=== PATIENT | male | born 1990 | race Caucasian/White ===

== ENCOUNTER 2021-10-18 13:44 | Emergency (ER) | payer MEDICAID ==
[2021-10-18] MEDS ORDERED: Ketorolac 60 MG/2 ML SDV IM ONE (14:10)
== END 2021-10-18 14:20 | disposition home or self-care (01) ==
LOC: CC.ED 13:44
DX: K08.89 Other specified disorders of teeth and supporting structures (principal); Z88.0 Allergy status to penicillin
CPT/HCPCS: 96372; 99282; 99283; J1885

== ENCOUNTER 2022-08-02 14:10 | Emergency (ER) | payer MEDICAID ==
[2022-08-02] MEDS: Take Home: Cephalexin 500 MG Cap, 6 Cap Pack PO ONE (14:32)
== END 2022-08-02 14:37 | disposition home or self-care (01) ==
LOC: CC.ED 14:10
DX: J02.9 Acute pharyngitis, unspecified (principal); Z88.0 Allergy status to penicillin; Z79.899 Other long term (current) drug therapy
CPT/HCPCS: 99282; 99283; A9270-GY

== ENCOUNTER 2022-11-02 12:00 | Emergency (ER) | payer MEDICAID | END 2022-11-02 12:25 | disposition left against medical advice (07) | LOC: CC.ED 12:00 | DX: J06.9 Acute upper respiratory infection, unspecified (principal); Z88.0 Allergy status to penicillin; Z87.891 Personal history of nicotine dependence | CPT/HCPCS: 99283 ==